=== PATIENT | male | born 1995 | race Caucasian/White ===

== ENCOUNTER 2017-04-10 14:28 | Outpatient (CLI) | payer OTHER ==
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
== END 2017-04-10 14:29 | disposition home or self-care (01) ==
LOC: SCSMRI 14:28
PROVIDERS: ATTEND Orthopaedic Surgery
DX: M25.532 Pain in left wrist (principal); S62.102A Fracture of unspecified carpal bone, left wrist, initial encounter for closed fracture